=== PATIENT | female | born 1970 | race Caucasian/White ===

== ENCOUNTER 2016-09-06 15:05 | Emergency (ER) | payer BC ==
[~2016-09-06] VITALS: Ht 157.5 cm; Wt 75.0 kg
[~2016-09-06 15:05] MED LIST: CLINDAMYCIN300 M1 PO; GABAPENTIN300 M2 PO; HYDROCO/APAP1 TA9 PO; LEXAPRO10 MG PO; LIPITOR10 M1 PO; LORTAB 1010 MG PO; MELOXICAM7.5 MG PO; MOTRIN200 MG PO; PERCOCET1 TA4 PO; TEMAZEPAM15 MG PO; XANAX0.5 MG PO
[2016-09-06] MEDS ORDERED: HYDROCO/APAP1 TA9 PO (15:23)
[2016-09-06 16:15] LABS: HEMOGLOBIN 11.1 g/dl (12.0-16.0); IMMATURE GRANULOCYTES 0.2 % (0.0-1.0); MEAN CELL VOLUME 84.2 fL CALC (80.0-100.0); MEAN CORPUSCULAR HGB 27.5 pG CALC (26.0-32.0); MEAN CORPUSCULAR HGB CONC 32.6 g/L CALC (32.0-36.0); NEUT# 1.53 thou/uL (2.00-7.15); RED BLOOD COUNT 4.04 mill/uL (4.20-5.60); RED CELL DISTRI WIDTH 13.3 % (11.5-15.5)
[2016-09-06 16:24] LABS: ALBUMIN 4.4 g/dL (3.2-5.0); ALKALINE PHOSPHATASE 89 u/l (38-126); ANION GAP 13 (6-22 (CALC)); BILIRUBIN, TOTAL 0.4 mg/dL (0.0-1.4); BUN 14 mg/dL (7-17); BUN/CREATININE RATIO 19 (12-20 (CALC)); CARBON DIOXIDE 25 mmol/l (22-30); CHLORIDE 104 mmol/l (95-108); CREATININE 0.7 mg/dL (0.5-1.0); GFR > 60 ML/MIN (>=60 (CALC)); GFR FOR AFR.AMER. > 60 ML/MIN (>=60 (CALC)); GLUCOSE 82 mg/dL (65-105); POTASSIUM 4.1 mmol/l (3.5-5.1); SGOT/AST 23 u/l (14-36); SGPT/ALT 36 u/l (9-52); SODIUM 138 mmol/l (137-146); TOTAL PROTEIN 7.3 g/dL (6.3-8.2)
[2016-09-06 16:35] LABS: MYOGLOBIN 33 ng/mL (0 - 62)
[2016-09-06 17:12] VITALS: BP 99/61
== END 2016-09-06 17:14 | disposition home or self-care (01) | DRG 880 ==
LOC: ED 15:05
PROVIDERS: Emergency Medicine
DX: F41.9 Anxiety disorder, unspecified (principal); R11.0 Nausea

== ENCOUNTER 2016-09-27 06:05 | Emergency (ER) | payer BC ==
[~2016-09-27] VITALS: Ht 157.5 cm; Wt 76.0 kg
[2016-09-27 06:44] LABS: HEMATOCRIT 36.4 % (37.0-47.0); MEAN CELL VOLUME 83.9 fL CALC (80.0-100.0); MEAN CORPUSCULAR HGB 27.6 pG CALC (26.0-32.0); NEUT# 1.81 thou/uL (2.00-7.15); RED BLOOD COUNT 4.34 mill/uL (4.20-5.60); RED CELL DISTRI WIDTH 13.3 % (11.5-15.5)
[2016-09-27 07:08] LABS: ALBUMIN 4.3 g/dL (3.2-5.0); ALKALINE PHOSPHATASE 80 u/l (38-126); AMYLASE 61 u/l (30-110); ANION GAP 14 (6-22 (CALC)); BILIRUBIN, TOTAL 0.6 mg/dL (0.0-1.4); BUN 13 mg/dL (7-17); BUN/CREATININE RATIO 19 (12-20 (CALC)); CALCIUM 9.7 mg/dL (8.4-10.2); CARBON DIOXIDE 24 mmol/l (22-30); CHLORIDE 108 mmol/l (95-108); CREATININE 0.7 mg/dL (0.5-1.0); GFR > 60 ML/MIN (>=60 (CALC)); GFR FOR AFR.AMER. > 60 ML/MIN (>=60 (CALC)); GLUCOSE 119 mg/dL (65-105); LIPASE 58 u/l (23-300); POTASSIUM 3.9 mmol/l (3.5-5.1); SGOT/AST 29 u/l (14-36); SGPT/ALT 36 u/l (9-52); SODIUM 142 mmol/l (137-146); TOTAL PROTEIN 7.5 g/dL (6.3-8.2)
[2016-09-27 07:20] LABS: MYOGLOBIN 27 ng/mL (0 - 62)
[2016-09-27 07:52] LABS: ACT PARTIAL THROMBO TIME 26.9 SECONDS (20.0-32.5); PROTHROMBIN TIME 10.6 SECONDS (9.0-12.5)
[2016-09-27] MEDS ORDERED: FIORICET PO (08:01)
[2016-09-27 08:18] VITALS: BP 97/55
== END 2016-09-27 08:19 | disposition home or self-care (01) | DRG 103 ==
LOC: ED 06:05
PROVIDERS: Emergency Medicine
DX: R51 Headache (principal); E78.5 Hyperlipidemia, unspecified; F41.0 Panic disorder [episodic paroxysmal anxiety]

== ENCOUNTER 2016-10-17 06:38 | Emergency (ER) | payer BC ==
[~2016-10-17] VITALS: Ht 157.5 cm; Wt 88.0 kg
[~2016-10-17 06:38] MED LIST changes: +FIORICET PO
[2016-10-17 07:52] LABS: URINE BILIRUBIN - DIPSTICK NEGATIVE (NEGATIVE); URINE BLOOD DIPSTICK NEGATIVE (NEGATIVE); URINE CLARITY CLEAR; URINE COLOR YELLOW; URINE GLUCOSE - DIPSTICK 100 mg/dL (NEGATIVE); URINE KETONE NEGATIVE (NEGATIVE); URINE LEUK ESTERASE NEGATIVE (NEGATIVE); URINE NITRITE - DIPSTICK NEGATIVE (Negative); URINE PROTEIN - DIPSTICK NEGATIVE (NEG-TRACE); URINE SPECIFIC GRAVITY >=1.030; URINE UROBILINOGEN - DIPSTICK 0.2 E.U./dL (0.2)
[2016-10-17 07:54] LABS: HEMATOCRIT 35.8 % (37.0-47.0); HEMOGLOBIN 12.6 g/dl (12.0-16.0); IMMATURE GRANULOCYTES 0.4 % (0.0-1.0); MEAN CELL VOLUME 84.6 fL CALC (80.0-100.0); MEAN CORPUSCULAR HGB 29.8 pG CALC (26.0-32.0); MEAN CORPUSCULAR HGB CONC 35.2 g/L CALC (32.0-36.0); NEUT# 3.07 thou/uL (2.00-7.15); RED BLOOD COUNT 4.23 mill/uL (4.20-5.60); RED CELL DISTRI WIDTH 13.4 % (11.5-15.5)
[2016-10-17 08:01] LABS: BARBITURATES NEGATIVE (NEGATIVE); COCAINE NEGATIVE (NEGATIVE); METHADONE NEGATIVE (NEGATIVE); OXCYCODONE POSITIVE (NEGATIVE); TETRAHYDROCANNABIONOL NEGATIVE (NEGATIVE); TRICYLIC ANTIDEPRESSANTS NEGATIVE (NEGATIVE)
[2016-10-17 08:11] LABS: ALBUMIN 4.2 g/dL (3.2-5.0); ALKALINE PHOSPHATASE 89 u/l (38-126); ANION GAP 14 (6-22 (CALC)); BILIRUBIN, TOTAL 0.4 mg/dL (0.0-1.4); BUN 15 mg/dL (7-17); BUN/CREATININE RATIO 23 (12-20 (CALC)); CALCIUM 9.6 mg/dL (8.4-10.2); CARBON DIOXIDE 23 mmol/l (22-30); CHLORIDE 105 mmol/l (95-108); CREATININE 0.7 mg/dL (0.5-1.0); GFR > 60 ML/MIN (>=60 (CALC)); GFR FOR AFR.AMER. > 60 ML/MIN (>=60 (CALC)); GLUCOSE 132 mg/dL (65-105); POTASSIUM 4.1 mmol/l (3.5-5.1); SGOT/AST 25 u/l (14-36); SGPT/ALT 33 u/l (9-52); SODIUM 139 mmol/l (137-146)
[2016-10-17 09:33] VITALS: BP 113/61
== END 2016-10-17 09:55 | disposition home or self-care (01) | DRG 103 ==
LOC: ED 06:38
PROVIDERS: Emergency Medicine
DX: G43.909 Migraine, unspecified, not intractable, without status migrainosus (principal)

== ENCOUNTER → 2018-06-01 | Outpatient (REF) | payer OTHER | END | disposition home or self-care (01) | DRG 556 | LOC: DI 11:25 | PROVIDERS: ATTEND Physical Medicine & Rehabilitation | DX: M25.562 Pain in left knee (principal) ==

== ENCOUNTER 2019-07-01 17:31 | Observation (INO) | payer SELFPAY ==
[~2019-07-01] VITALS: Ht 157.5 cm; Wt 57.5 kg
--- NOTE | 2019-07-01 18:00 | NUR ---
PT PRESENTS WITH CHEST PAIN OF 6/10. HER DISCRIPTION OF HER PAIN IS PRESSURE, "SOMETHING IS SITTING ON MY CHEST". SHE STATES SHE FELT IT 10 MINS BEFORE ARRIVAL. PT WAS DOING EXTRANUOUS ACTIVITY WHEN THIS HAPPENED. PT WAS PULLING OFF BOARDING WITH CROWBAR. PT STATES FEELING DIZZY. PT WAS BREATHING FAST AND WAS COACHED TO SLOW DOWN BECAUSE SHE CAN HYPERVENTALATE. VITALS WNL. EKG NSR. WILL CONTINUE TO MONITOR.
[2019-07-01] MEDS ORDERED: HYDROCODONE BIT1 TA7 PO (18:01)
[2019-07-01 18:16] LABS: HEMATOCRIT 37.6 % (37.0-47.0); HEMOGLOBIN 12.5 g/dl (12.0-16.0); IMMATURE GRANULOCYTES 0.3 % (0.0-5.0); MEAN CELL VOLUME 88.1 fL CALC (80.0-100.0); MEAN CORPUSCULAR HGB 29.3 pG CALC (26.0-32.0); MEAN CORPUSCULAR HGB CONC 33.2 g/dL CAL (32.0-36.0); NEUT# 3.49 thou/uL (2.00-7.15); RED BLOOD COUNT 4.27 mill/uL (4.20-5.60); RED CELL DISTRI WIDTH 13.2 % (11.5-15.5)
[2019-07-01 18:17] LABS: URINE BILIRUBIN - DIPSTICK NEGATIVE (NEGATIVE); URINE BLOOD DIPSTICK TRACE-INTACT (NEGATIVE); URINE COLOR YELLOW; URINE GLUCOSE - DIPSTICK NEGATIVE (NEGATIVE); URINE KETONE NEGATIVE (NEGATIVE); URINE LEUK ESTERASE NEGATIVE (NEGATIVE); URINE NITRITE - DIPSTICK NEGATIVE (Negative); URINE PROTEIN - DIPSTICK NEGATIVE (NEG-TRACE); URINE UROBILINOGEN - DIPSTICK 0.2 E.U./dL (0.2)
[2019-07-01 18:20] LABS: BARBITURATES NEGATIVE (NEGATIVE); COCAINE NEGATIVE (NEGATIVE); METHADONE NEGATIVE (NEGATIVE); OXCYCODONE POSITIVE (NEGATIVE); TETRAHYDROCANNABIONOL NEGATIVE (NEGATIVE); TRICYLIC ANTIDEPRESSANTS NEGATIVE (NEGATIVE)
[2019-07-01 18:33] LABS: ALBUMIN 4.4 g/dL (3.2-5.0); ALKALINE PHOSPHATASE 82 u/l (38-126); ANION GAP 13 (6-22 (CALC)); BILIRUBIN, TOTAL 0.5 mg/dL (0.0-1.4); BUN 6 mg/dL (7-17); BUN/CREATININE RATIO 9 (12-20 (CALC)); CARBON DIOXIDE 21 mmol/l (22-30); CHLORIDE 104 mmol/l (95-108); CREATININE 0.6 mg/dL (0.5-1.0); GFR > 60 ML/MIN (>=60 (CALC)); GFR FOR AFR.AMER. > 60 ML/MIN (>=60 (CALC)); SGOT/AST 24 u/l (14-36); SODIUM 135 mmol/l (137-146)
[2019-07-01 18:41] LABS: POTASSIUM 3.1 mmol/l (3.5-5.1)
[2019-07-01 18:45] LABS: MYOGLOBIN 52 ng/mL (0 - 62)
--- NOTE | 2019-07-01 19:00 | NUR ---
PT WAS SEEN CRYING IN BED. SHE WAS EDU ON WAYS TO DECREASE ANXIETY AND SHE WAS COACHED ON WAYS TO BREATHE THAT CAN AVOID HER FROM HYPERVENTALATING.
--- NOTE | 2019-07-01 20:00 | NUR ---
PT UPDATED ON PLAN OF CARE AND WAIT TIME. PT VERBALIZED UNDERSTANDING.
--- NOTE | 2019-07-01 20:35 | NUR ---
GAVE REPORT TO JASPAL
--- NOTE | 2019-07-01 20:45 | NUR ---
PT TRANSPORTED STABLE, IN NO DISTRESS TO MED SURG VIA STRETCHER BY JASPAL. CARE ASSUMED TO JASPAL. Admission Note Report Given to: Transported by: Wheelchair X Stretcher Transported with: X Nurse Transporter X Patent IV O2 X [employer] Specialist Supervisor Location: ICU X [facility]
[2019-07-01 21:15] VITALS: BP 104/66
--- NOTE | 2019-07-01 21:15 | NUR ---
REPORT RECEIVED FROM ISMAEL RN @ BEDSIDE IN ED. PT TRANSPORTED UP VIA WC ACCOMPONIED BY THIS RN. PT ADMITTED TO ROOM 288, NEGATIVE PRESSURE/ AIRBORNE ISOLATION ROOM. PT AMBULATORY TO BED, GAIT STEADY AND UNBALANCED. PT ORIENTED TO UNIT, ROOM, AND PLAN OF CARE. PT VERBALIZES UNDERSTANDING AND DENIES QUESTIONS. PHYSICAL ASSESMENT COMPLETE, PT IS VISIBLY ANXIOUS/TEARFUL AND ADMITS TO ANXIETY. PRN ANXIOLYTIC AND ANALGESIC ADMINISTERED, SEE MAR. ALLOWED PT TIME TO VERBALIZE CONCERNS/ FEELINGS. VERBAL SUPPORT PROVIDED. FRESH WATER AND SNACK PROVIDED. PT DENIES FURTHER NEEDS AT THIS TIME. ITEMS WITHIN REACH. BED LOCKED IN LOW POSITION W/ BEDRAILS UPX2. CALL PUGA WITHIN REACH, AGREES TO CALL PRN.
--- NOTE | 2019-07-01 22:00 | NUR ---
SPOKE W/ DR. BEARD REGARDING ROCEPHIN ORDER AND PAST ALLERGIC REACTION TO PCN. ORDER RECEIVED TO D/C ROCEPHIN AND ZITHROMAX AND CON'T LEVAQUIN IV. SEE ORDERS. ORDER RECEIVED FOR PRN NICOTINE PATCH PER PTS REQUEST.
--- NOTE | 2019-07-01 22:15 | NUR ---
TV DINNER TRAY WARMED AND PROVIDED TO PT.
--- NOTE | 2019-07-02 00:05 | NUR ---
TROPONIN LEVEL DRAWN. COVID-19 SWAB COLLECTED FROM R NARE, PT TOLERATED W/ SOME DISCOMFORT.
[2019-07-02 00:27] VITALS: BP 81/49
[2019-07-02 04:06] VITALS: BP 86/55
--- NOTE | 2019-07-02 05:30 | NUR ---
PT APPEARS TO BE SLEEPING COMFORTABLY, RESP REG AND UNLABORED, NO APPARENT DISTRESS. WAKES EASILY TO VERBAL STIMULI. TROPONIN LEVEL DRAWN AND SENT TO LAB. PT DENIES NEEDS AT THIS TIME. CALL PUGA REMAINS WITHIN REACH. AGREES TO CALL PRN.
[2019-07-02 08:00] VITALS: BP 93/51
--- NOTE | 2019-07-02 08:00 | NUR ---
REPORT RECEIVED FROM KATHLEEN SHAY. PT ASLEEP WITH EYES CLOSED ON RIGHT SIDE; AWAKENS TO TACTILE STIMULI; ALERT AND ORIENTED. C/O GENERALIZED ACHES AND PAIN TO JOINTS WHICH SHE STATES IS NORMAL FOR HER IN THE MORNINGS. RESPIRATIONS EVEN AND UNLABORED ON ROOM AIR. PLAN OF CARE REVIEWED. PT ENCOURAGED TO VERBALIZE CONCERNS. STATES UNDERSTANDING. SAFETY MEASURES IN PLACE. CALL LIGHT WITHIN REACH.
--- NOTE | 2019-07-02 08:45 | NUR ---
PNA VAC GIVEN IN RIGHT ARM. NICOTINE PATCH APPLIED TO LEFT UPPER ARM. LORTAB GIVEN FOR PAIN AND XANAX GIVEN PER REQUEST.
--- NOTE | 2019-07-02 11:45 | NUR ---
DR. AMAYA AT BEDSIDE.
[2019-07-02 11:50] VITALS: BP 90/64
[2019-07-02] MEDS ORDERED: LEVAQUIN750 MG PO (12:03)
--- NOTE | 2019-07-02 12:46 | NUR ---
IV site discontinued, cath intact. No edema , no redness, voices no discomfort.
--- NOTE | 2019-07-02 13:01 | NUR ---
Discharge instructions given. Patient verbalizes understanding of same. Discharged in stable condition via Wheelchair to Home. All belongings sent with pt.
--- NOTE | 2019-07-03 11:10 | NUR ---
Attempt to call COVID results to patient, reached VM, no mailbox set up.
--- NOTE | 2019-07-03 11:28 | NUR ---
Patient notified of test results, encourage stay home-stay safe compliance and hand hygiene, instructed if patient does not improve to return to ED.
== END 2019-07-02 12:49 | disposition home or self-care (01) | DRG 313 ==
LOC: ED 17:31 → ED-I 19:37 → ED 19:57 → ED-I 19:58 → MS2 20:16
PROVIDERS: Emergency Medicine; ADMIT Internal Medicine; ATTEND Internal Medicine
PROC: 3E0234Z Introduction of Serum, Toxoid and Vaccine into Muscle, Percutaneous Approach (ICD-10-PCS; principal; 2019-07-02)
DX: R07.89 Other chest pain (principal); F41.0 Panic disorder [episodic paroxysmal anxiety]; J40 Bronchitis, not specified as acute or chronic; E87.6 Hypokalemia; E78.5 Hyperlipidemia, unspecified; I25.10 Atherosclerotic heart disease of native coronary artery without angina pectoris; I73.9 Peripheral vascular disease, unspecified; F17.200 Nicotine dependence, unspecified, uncomplicated; Z23 Encounter for immunization; Z20.828 Contact with and (suspected) exposure to other viral communicable diseases
CPT/HCPCS: G0378; Q9967

== ENCOUNTER 2020-01-14 14:23 | Emergency (ER) | payer SELFPAY ==
[~2020-01-14] VITALS: Ht 157.5 cm; Wt 56.0 kg
[~2020-01-14 14:23] MED LIST changes: +HYDROCODONE BIT1 TA7 PO; +LEVAQUIN750 MG PO
[2020-01-14 16:11] LABS: HEMATOCRIT 35.1 % (37.0-47.0); HEMOGLOBIN 11.8 g/dl (12.0-16.0); MEAN CELL VOLUME 91.4 fL CALC (80.0-100.0); MEAN CORPUSCULAR HGB 30.7 pG CALC (26.0-32.0); MEAN CORPUSCULAR HGB CONC 33.6 g/dL CAL (32.0-36.0); NEUT# 3.05 thou/uL (2.00-7.15); RED BLOOD COUNT 3.84 mill/uL (4.20-5.60); RED CELL DISTRI WIDTH 13.8 % (11.5-15.5)
[2020-01-14 16:23] LABS: URINE BILIRUBIN - DIPSTICK NEGATIVE (NEGATIVE); URINE BLOOD DIPSTICK NEGATIVE (NEGATIVE); URINE COLOR YELLOW; URINE GLUCOSE - DIPSTICK NEGATIVE (NEGATIVE); URINE KETONE NEGATIVE (NEGATIVE); URINE LEUK ESTERASE NEGATIVE (NEGATIVE); URINE NITRITE - DIPSTICK NEGATIVE (Negative); URINE PH 6.5 (4.5-8.0); URINE PROTEIN - DIPSTICK NEGATIVE (NEG-TRACE); URINE SPECIFIC GRAVITY <=1.005; URINE UROBILINOGEN - DIPSTICK 0.2 E.U./dL (0.2)
[2020-01-14 16:31] LABS: ALBUMIN 3.9 g/dL (3.2-5.0); ALKALINE PHOSPHATASE 84 u/l (38-126); ANION GAP 8 (6-22 (CALC)); BUN 3 mg/dL (7-17); BUN/CREATININE RATIO 5 (12-20 (CALC)); CARBON DIOXIDE 25 mmol/l (22-30); CHLORIDE 110 mmol/l (95-108); CREATININE 0.6 mg/dL (0.5-1.0); GFR > 60 ML/MIN (>=60 (CALC)); GFR FOR AFR.AMER. > 60 ML/MIN (>=60 (CALC)); LIPASE 57 u/l (23-300); POTASSIUM 3.5 mmol/l (3.5-5.1); SGOT/AST 21 u/l (14-36); SODIUM 140 mmol/l (137-146); TOTAL PROTEIN 6.6 g/dL (6.3-8.2)
[2020-01-14 16:32] LABS: HCG SERUM/URINE (NEG/POS) NEGATIVE (NEGATIVE)
[2020-01-14 16:36] LABS: BILIRUBIN, TOTAL 0.2 mg/dL (0.0-1.4)
[2020-01-14] MEDS ORDERED: ZOFRAN4 MG/TAB PO (18:34)
[2020-01-14 19:08] VITALS: BP 109/70
== END 2020-01-14 19:08 | disposition home or self-care (01) | DRG 153 ==
LOC: ED 14:23
PROVIDERS: Student in an Organized Health Care Education/Training Program
DX: J11.1 Influenza due to unidentified influenza virus with other respiratory manifestations (principal); F17.210 Nicotine dependence, cigarettes, uncomplicated; Z20.828 Contact with and (suspected) exposure to other viral communicable diseases